=== PATIENT | female | born 1975 | race Caucasian/White ===

== ENCOUNTER 2021-02-03 06:55 | Emergency (ER) | payer BC ==
[~2021-02-03] VITALS: Ht 177.8 cm; Wt 89.1 kg
[2021-02-03 06:59] VITALS: BP 120/77
== END 2021-02-03 09:04 | disposition home or self-care (01) ==
LOC: ED 08:02
DX: J18.1 Lobar pneumonia, unspecified organism (principal); R06.00 Dyspnea, unspecified; R06.02 Shortness of breath
CPT/HCPCS: 71045; 93005; 99283